=== PATIENT | female | born 1995 | race Caucasian/White ===

== ENCOUNTER 2025-03-23 20:51 | Emergency (ER) | payer OTHER, SELFPAY ==
[2025-03-23 20:52] VITALS: BP 190/116
[2025-03-23 21:26] LABS: Hematocrit 36.7 % (37.0-47.0); Hemoglobin 12.1 g/dL (12.0-16.0); Mean Corp Hgb Conc. 33.0 g/dL (33.0-37.0); Mean Corpuscular Volume 81.9 fL (81.0-99.0); Nucleated Red Blood Cells % 0 %; Platelet Count 406 10^3/uL (130-400); Red Cell Dist. Width 12.9 % (11.5-14.5)
[2025-03-23 21:37] LABS: APTT 31.1 Sec (23.4-35.0)
[2025-03-23 21:48] LABS: ALT (SGPT) 20 U/L (0-35); AST (SGOT) 22 U/L (14-36); Albumin 4.3 g/dl (3.5-5.0); Alkaline Phosphatase 84 U/L (38-126); Blood Urea Nitrogen 10 mg/dl (7-17); Calcium 9.8 mg/dl (8.4-10.2); Carbon Dioxide 27 mmol/L (22-30); Chloride 101 mmol/L (98-107); Glucose 91 mg/dl (70-99); Sodium 134 mmol/L (135-145); Total Protein 7.2 g/dl (6.3-8.2); eGFR > 60.00
[2025-03-23 21:54] LABS: Potassium 3.6 mmol/L (3.5-5.1)
[2025-03-23 21:55] VITALS: BP 166/106
[2025-03-23 21:57] VITALS: BMI 36.2
[2025-03-23 22:14] LABS: HCG, Serum Qualitative Screen Negative
--- NOTE | 2025-03-23 22:32 | ED.GENMED ---
History of Present Illness
General
Chief Complaint: Cold/Flu/URI Symptoms
Source: patient
Exam Limitations: none
Time Seen by Provider: 03/23/25 22:25
History of Present Illness
History of Present Illness:
30yoF with a history of migraines presenting for evaluation of chest pain. Patient was initially diagnosed with pneumonia on 02/15/25 at [facility]. She was treated with doxycycline and subsequently was prescribed a Medrol Dosepak a few weeks
later. She has had multiple visits at [facility] for follow-up since then. Her blood pressure has been persistently elevated during the last several visits. Blood pressure was 189/137 today and she was sent to the ED for concern for a
hypertensive emergency. Patient has no headache or visual changes. She does report pleuritic sharp right sided chest discomfort that began yesterday. Cough is ongoing but does seem improved.
Past History
Past History
ED Past Medical History: Psychiatric and Other (Anemia)
ED Past Surgical History: Tonsilectomy
Social History
Tobacco: Non-smoker
Living: with family
Employment: Student
Family History
Family History: Other (Noncontributory)
Phy Exam
General Physical Exam
General Presentation: well appearing and no apparent distress
General Skin: warm and dry
General Habitus: normal
General Mental: alert
ENT Exam
ENT Exam: normocephalic
Cardiovascular Exam
Cardiovascular Exam: regular rate/rhythm, no edema and no murmur
Pulmonary Exam
Pulmonary Exam: lungs clear, no respiratory distress, no rales, no crackles, no rhonchi, no wheezing and other (+R anterior chest wall tenderness)
Neurological Exam
Neurological Exam: alert
Freeman Coma Scale
Eye Opening: Spontaneous
Verbal Response: Oriented
Motor Response: Obeys Commands
GCS Total Score: 15
Skin Exam
Skin Exam: normal color and warm/dry
Psychiatric Exam
Psychiatric Exam: normal mood/affect
Course
Orders/Labs/Results
Orders:
Orders
03/23/25 20:58
EKG [Electrocardiogram (*1)] Urgent
Reason for Study: Tachycardia
EKG- Treatment ONCE
03/23/25 21:11
Complete Blood Count/With Diff Urgent
Comprehensive Metabolic Panel Urgent
HCG, Serum Qualitative Screen Urgent
Comment: ADD ON
PTT Urgent
03/23/25 21:53
Add On- LAB Urgent
Tests Added?: serum b-hcg, qualitative
03/23/25 23:05
D-Dimer Urgent
Abnormal Lab Results
03/23/25
21:11
WBC 12.0 H 10^3/uL
(4.8-10.8)
Hct 36.7 L %
(37.0-47.0)
Plt Count 406 H 10^3/uL
(130-400)
Abs Immat Gran (auto) 0.1 H 10^3/uL
(0-0.05)
Absolute Neuts (auto) 8.4 H 10^3/uL
(1.4-6.5)
Sodium 134 L mmol/L
(135-145)
03/23/25 21:11
03/23/25 21:11
Vital Signs
Initial and Last Documented VS:
Initial Vital Signs
Temp Pulse Resp BP Pulse Ox
98.4 F 96 20 190/116 96
03/23/25 20:52 03/23/25 20:52 03/23/25 20:52 03/23/25 20:52 03/23/25 20:52
Last Documented Vital Signs
Temp Pulse Resp BP Pulse Ox
98.4 F 96 20 139/81 97
03/23/25 20:52 03/23/25 20:52 03/23/25 20:52 03/24/25 00:00 03/24/25 00:15
MDM/Problems Addressed
Differential Diagnosis Includes:
30yoF sent from urgent care for elevated BP. BP 189/137 at urgent care today. BP 190/116 in triage and 166/106 on initial exam. Asymptomatic from this perspective. Has been having ongoing cough for about 5 weeks. C/o pleuritic R sided chest pain
since yesterday and there is reproducible chest wall tenderness on exam. Differential diagnosis includes: Costochondritis, pneumonia, bronchitis, PE, asymptomatic hypertension
Initial ED plan: Lab work initiated in triage. Mild leukocytosis noted with a white count of 12 which is nonspecific. Renal function normal. EKG shows sinus tachycardia without ischemic changes. Patient arrived with a disc with her chest x-ray
images from urgent care. I was able to review this in [facility] and chest x-ray appears normal. Will check D-dimer and reassess.
*Pulse Oximetry
SaO2: 98
Oxygen Mode of Delivery: Room air
Patient hypoxic: no
*EKG
Interpreted by ED Provider?: Yes
EKG Intrepretation Date: 03/23/25
Heart Rate: 102
Rate: tachycardiac
Rhythm: sinus
[place]: normal axis
Interval: normal interval
QRS Pattern: normal QRS
Ischemia: no ischemia
*Critical Care Note
Total Time (30-74mins, 75-104mins- exclusive of procedures): Not Applicable
Update Note
Update Note:
D-dimer normal making PE very unlikely. Blood pressure improved to 139/81 without intervention. Suspect chest pain is musculoskeletal due to coughing. No indication for hospitalization. Patient advised to follow-up with PCP and ED return
precautions reviewed. Patient in agreement with plan and she was discharged stable condition.
ED Attending Note
-
Portions of this chart may have been created with voice recognition software.� Occasional wrong word or��sound alike� substitutions may have occurred due to the inherent limitations of voice recognition software.
Discharge Plan
Departure
Patient Disposition: Home (Routine Discharge)
Date of Disposition: 03/24/25
Time of Disposition: 00:23
Patient with high blood pressure during this ER visit?: Yes
Discharge Problem:
Chest wall pain, Elevated blood pressure reading
Instructions: Costochondritis
Prescriptions:
No Action
vit-iron fum-folic ac 1 EACH tablet
1 tab PO DAILY
ibuprofen 600 MG tablet
600 mg PO Q6HPRN PRN (Reason: moderate pain/cramps) 0RF
Referrals:
[facility] [Provider Group]
NONE,* [Family Provider, Internal Medicine]
Activity Restrictions/Additional Instructions:
Take ibuprofen as needed for pain. Apply heat to affected area.
Please call on Wednesday to schedule a follow-up appointment with a family doctor. You should have your blood pressure rechecked as an outpatient.
Return to the ER with any new or worsening symptoms.
Interventions
Interventions:
*Risk Screen - Suicide Last Done: 03/23/25 20:52
*General Assessment Last Done: 03/23/25 20:52
*Neglect/Abuse Screening Last Done: 03/23/25 20:52
*ED COVID-19 Vaccine History Last Done: 03/23/25 20:52
*ED Influenza Vaccine History Last Done: 03/23/25 20:52
[facility] Fall Risk Assessment Tool Last Done: 03/23/25 21:58
*Nursing Disposition Last Done: 03/24/25 00:34
ED- Pulmonary Assessment Last Done: 03/23/25 21:58
Discharge Date and Time
Discharge Date/Time: 03/24/25 00:36
Print Language: KHMER
[2025-03-23 23:06] VITALS: BP 143/108
[2025-03-23 23:42] LABS: D-Dimer < 0.27 ug/mlFEU (0.00-0.50)
[2025-03-24] VITALS: BP 139/81
== END 2025-03-24 00:36 | disposition home or self-care (01) ==
LOC: EMR 20:51
PROVIDERS: Emergency Medicine; Physician Assistant; EMERGENCY PHYSICIAN Emergency Medicine
DX: R07.89 Other chest pain (principal); R03.0 Elevated blood-pressure reading, without diagnosis of hypertension
CPT/HCPCS: 99284; 80053; 84703; 85025; 85379; 85730; 93005